=== PATIENT | male | born 1970 | race Caucasian/White ===

== ENCOUNTER 2016-07-26 20:10 | Emergency (ER) | payer MEDICARE, MEDICAID ==
[~2016-07-26] VITALS: Ht 167.6 cm; Wt 69.9 kg
[~2016-07-26 20:10] MED LIST: FURO40TA4 PO; IRON; LEVE500T PO; MIDAZOLAM 5 MG/5 ML (VERSED) VIAL IJ ONE; PNT40TEC PO; ROCURONIUM 50 MG/5 ML (ZEMURON) VIAL IV ONE; SPIR100T28 PO; SPIR100T37 GT; SUCCINYLCHOLINE INJ 100 MG/5 ML SYR INJ ONE; Sucralfate PO
[2016-07-26] MEDS ORDERED: LORazepam INJ 2 MG/ML (ATIVAN) VIAL ONE (20:14)
--- OUTSIDE RECORDS SUMMARY | 2016-07-26 20:15 | XMS REPORT ---
Author Author RALEIGH ESCAMILLA Organization [employer] Address Unknown Phone Unavailable Care Team Providers Care Configuration Technician Name Role Phone RALEIGH ESCAMILLA Unavailable Allergies No Known Allergies Problems Problem Type Condition Code Onset Dates Condition Status Problem Seizure disorder G40.909 Active Problem Cirrhosis K74.60 Active Medications Medication Code System Code Instructions Start Date End Date Status Dosage Keppra [facility] [address]-54 500 MG Orally every 12 hrs July 14, 2014 1 Tablet by Oral route 2 times per day Results No Known Results Summary Purpose [employer] Submission
[2016-07-26] MEDS ORDERED: ONDANSETRON 4 MG/2 ML (SDV) Z0FRAN ONE (20:18)
[2016-07-26] MEDS ORDERED: NS IV 1000 ML 1,000 ML IV STA (20:19)
[2016-07-26] MEDS ORDERED: ONDANSETRON 4 MG/2 ML (SDV) Z0FRAN IVP ONE (20:30)
[2016-07-26 20:32] LABS: BASOPHILS % (AUTO) 0 % (0-10); EOSINOPHILS % (AUTO) 0 % (0-10); LYMPHOCYTES # (AUTO) 0.5 X 10^3 (1.0-4.0); LYMPHOCYTES % (AUTO) 9 % (12-44); MEAN CORPUSCULAR HEMOGLOBIN 31 PG (25-34); MEAN CORPUSCULAR HGB CONC 34 G/DL (32-36); MEAN CORPUSCULAR VOLUME 89 FL (80-99); MEAN PLATELET VOLUME 9.3 FL (7.4-10.4); MONOCYTES # (AUTO) 0.7 X 10^3 (0.0-1.0); MONOCYTES % (AUTO) 12 % (0-12); NEUTROPHILS # (AUTO) 4.9 X 10^3 (1.8-7.8); NEUTROPHILS % (AUTO) 80 % (42-75); PLATELET COUNT 53 10^3/uL (130-400); RED BLOOD COUNT 4.06 10^6/uL (4.35-5.85); RED CELL DISTRIBUTION WIDTH 16.5 % (10.0-14.5); WHITE BLOOD COUNT 6.2 10^3/uL (4.3-11.0)
--- NOTE | 2016-07-26 20:37 | ED Head Injury ---
General Stated Complaint: SEIZURE Source: patient Exam Limitations: clinical condition History of Present Illness Time seen by provider: 20:15 Initial Comments Here with report from EMS of fall today and hitting his head. Patient has history of seizure disorder and hepatitis. Patient apparently fell straight back at the [employer]. His mother at that time did not want him transported although EMS did evaluate him. Later, they were called back to the home where patient apparently had had some seizures and is not acting right. He is responding to his name and has had several episodes of vomiting. C- collar was applied to the patient by EMS for transport and this remains in place. History per EMS. Otherwise unobtainable. Occurred: this afternoon Severity: moderate, severe Location: occipital Method of Injury: fell Loss of Consciousness: unsure Associated Systoms: Nausea/VomitingNo Shortness of Air Allergies and Home Medications Allergies Coded Allergies: No Known Drug Allergies (Unverified , 07/03/14) Home Medications 1 GM TAB #120 1 GM PO ACHS Prescribed by: GABBI PFEIFFER on 07/10/141356 Furosemide 40 Mg Tablet #30 20 MG PO DAILY Prescribed by: GABBI PFEIFFER on 07/10/147 Levetiracetam 500 Mg Tab #60 500 MG PO BID Prescribed by: GABBI PFEIFFER on 07/10/141356 Pantoprazole Sod 40 Mg Tab #60 40 MG PO BID Prescribed by: GABBI PFEIFFER on 07/10/141356 Spironolactone 100 Mg Tablet #30 50 MG PO DAILY Prescribed by: GABBI PFEIFFER on 07/10/147 Constitutional: see HPI Gastrointestinal: nausea vomiting Psychiatric/Neurological: See HPI Other Unable complete review of systems due to altered mental status Past Kfglqie-Gucbjs-Frrhnu Hx Patient Social History Alcohol Use: Denies Use Recreational Drug Use: No Smoking Status: Never a Smoker Immunizations Up To Date Date of Influenza Vaccine: Mar 17, 2014 Surgeries HX Surgeries: No Respiratory Hx Respiratory Disorders: No Cardiovascular Hx Cardiac Disorders: No Neurological Hx Neurological Disorders: Yes (HAS SEIZURE WHEN "A CERTAIN PERSON COMES TO HOUSE") Neurological Disorders: Seizure Disorder, Traumatic Brain Injury Reproductive System Hx Reproductive Disorders: No Genitourinary Hx Genitourinary Disorders: No Gastrointestinal Hx Gastrointestinal Disorders: Yes (LIVER ENZYMES UP/ POSSIBLE HEP B) Gastrointestinal Disorders: Cirrhosis Musculoskeletal Hx Musculoskeletal Disorders: No Endocrine Hx Endocrine Disorders: No HEENT HX ENT Disorders: No Cancer Hx Cancer: No Psychosocial Hx Psychiatric Problems: No Integumentary HX Skin/Integumentary Disorder: No Blood Transfusions Hx Blood Disorders: No Reviewed Nursing Assessment Reviewed/Agree w Nursing PMH: Yes Family Medical History Significant Family History: No Pertinent Family Hx Family Medial History: Patient reports no known family medical history. Physical Exam Vital Signs Vital Sign - Last 12Hours 07/26/16 07/26/16 20:48 22:00 O2 Flow Rate 100.00 FiO2 100 Capillary Refill : General Appearance: moderate distress (vomiting) thin HEENT: PERRL/EOMI TMs normal pharynx normal Neck: suppleNo tender lateral, other (abrasion to the posterior middle region of the head. Neck evaluated while holding C-spine with collar open. Reports nontender overall.) Cardiovascular: no murmur tachycardia Respiratory: lungs clear normal breath sounds Gastrointestinal: non tender soft Back: normal inspection no CVA tenderness no vertebral tenderness Extremities: non-tender normal inspection Psychiatric: disoriented x 3 lethargic Crainal Nerves: PERRL other (does open eyes and occasionally answers questions.) Skin: normal color warm/dry Jose Raul Coma Score Best Eye Response: (3) Open to Voice Best Verbal Response: (3) Inappropriate Words Best Motor Response: (6) Obeys Commands Progress/Results/Core Measures Results/Orders Lab Results Laboratory Tests Test 07/26/16 20:25 07/26/16 20:37 07/26/16 21:30 Range/Units Acetaminophen Level < 10 L 10-30 UG/ML Activated Partial Thromboplast Time 31 24-35 SEC Alanine Aminotransferase (ALT/SGPT) 59 H 0-55 U/L Albumin 3.3 3.2-4.5 G/DL Alkaline Phosphatase 163 H 40-136 U/L Ammonia 44 H 11-32 UMOL/L Anion Gap 14 5-14 MMOL/L Aspartate Amino Transf (AST/SGOT) 70 H 5-34 U/L BUN/Creatinine Ratio 14 Basophils # (Auto) 0.0 0.0-0.1 10^3/uL Basophils (%) (Auto) 0 0-10 % Blood Urea Nitrogen 17 7-18 MG/DL Calcium Level 8.9 8.5-10.1 MG/DL Carbon Dioxide Level 17 L 21-32 MMOL/L Chloride Level 105 98-107 MMOL/L Creatinine 1.19 0.60-1.30 MG/DL Eosinophils # (Auto) 0.0 0.0-0.3 10^3/uL Eosinophils (%) (Auto) 0 0-10 % Estimat Glomerular Filtration Rate > 60 Glucose Level 125 H 70-105 MG/DL Hematocrit 36 L 40-54 % Hemoglobin 12.4 L 13.3-17.7 G/DL INR Comment 1.6 H 0.8-1.4 Lymphocytes # (Auto) 0.5 L 1.0-4.0 X 10^3 Lymphocytes (%) (Auto) 9 L 12-44 % Magnesium Level 1.7 L 1.8-2.4 MG/DL Mean Corpuscular Hemoglobin 31 25-34 PG Mean Corpuscular Hemoglobin Concent 34 32-36 G/DL Mean Corpuscular Volume 89 80-99 FL Mean Platelet Volume 9.3 7.4-10.4 FL Monocytes # (Auto) 0.7 0.0-1.0 X 10^3 Monocytes (%) (Auto) 12 0-12 % Neutrophils # (Auto) 4.9 1.8-7.8 X 10^3 Neutrophils (%) (Auto) 80 H 42-75 % Platelet Count 53 L 130-400 10^3/uL Potassium Level 3.7 3.6-5.0 MMOL/L Prothrombin Time 19.1 H 12.2-14.7 SEC Red Blood Count 4.06 L 4.35-5.85 10^6/uL Red Cell Distribution Width 16.5 H 10.0-14.5 % Serum Alcohol < 10 <10 MG/DL Sodium Level 136 135-145 MMOL/L Total Bilirubin 1.5 H 0.1-1.0 MG/DL Total Protein 6.8 6.4-8.2 G/DL White Blood Count 6.2 4.3-11.0 10^3/uL Ur Tricyclic Antidepressants Screen NEGATIVE NEGATIVE Urine Amphetamines Screen NEGATIVE NEGATIVE Urine Bacteria NEGATIVE /HPF Urine Barbiturates Screen NEGATIVE NEGATIVE Urine Benzodiazepines Screen NEGATIVE NEGATIVE Urine Bilirubin NEGATIVE NEGATIVE Urine Cannabinoids Screen NEGATIVE NEGATIVE Urine Casts PRESENT /LPF Urine Clarity SLIGHTLY CLOUDY Urine Cocaine Screen NEGATIVE NEGATIVE Urine Color YELLOW Urine Crystals NONE /LPF Urine Culture Indicated NO Urine Glucose (UA) NEGATIVE NEGATIVE Urine Hyaline Casts 5-10 H /LPF Urine Ketones NEGATIVE NEGATIVE Urine Leukocyte Esterase NEGATIVE NEGATIVE Urine Methadone Screen NEGATIVE NEGATIVE Urine Methamphetamines Screen NEGATIVE NEGATIVE Urine Mucus MODERATE H /LPF Urine Nitrite NEGATIVE NEGATIVE Urine Opiates Screen NEGATIVE NEGATIVE Urine Oxycodone Screen NEGATIVE NEGATIVE Urine Phencyclidine Screen NEGATIVE NEGATIVE Urine Propoxyphene Screen NEGATIVE NEGATIVE Urine Protein NEGATIVE NEGATIVE Urine RBC NONE /HPF Urine RBC (Auto) NEGATIVE NEGATIVE Urine Specific [place] 1.025 H 1.016-1.022 Urine Urobilinogen 1 NORMAL MG/DL Urine WBC 0-2 /HPF Urine pH 5 5-9 Yifan Test YES-POS Arterial Blood Base Excess -5.2 L -2.5-2.5 MMOL/L Arterial Blood HCO3 20 L 23-27 MMOL/L Arterial Blood Oxygen Saturation 101 H 94-100 % Arterial Blood Partial Pressure CO2 36 35-45 MMHG Arterial Blood Partial Pressure O2 336 H 79-93 MMHG Arterial Blood Total CO2 20.7 L 21.0-31.0 MMOL/L Arterial Blood pH 7.35 L 7.37-7.43 Blood Gas Inspired Oxygen 100% Blood Gas Patient Temperature 97.5 Blood Gas Puncture Site RT RAD Blood Gas Ventilator Setting YES My Orders Orders-SUE BRANDON MD Lorazepam Injection (Ativan Injection) (07/26/16 20:14) Ct Head/Cervical Spine Wo (07/26/16 20:19) Acetaminophen (07/26/16 20:19) Alcohol (07/26/16 20:19) Ammonia (07/26/16 20:19) Cbc With Automated Diff (07/26/16 20:19) Comprehensive Metabolic Panel (07/26/16 20:19) Drug Screen Stat (Urine) (07/26/16 20:19) Magnesium (07/26/16 20:19) Protime With Inr (07/26/16 20:19) Partial Thromboplastin Time (07/26/16 20:19) Ua Culture If Indicated (07/26/16 20:19) Ondansetron Injection (Zofran Injectio (07/26/16 20:30) Ns Iv 1000 Ml (Sodium Chloride 0.9%) (07/26/16 20:19) Ondansetron Injection (Zofran Injectio (07/26/16 20:18) Chest 1 View, Ap/Pa Only (07/26/16 20:31) Propofol Drip (Icu) (Diprivan Drip (Icu) (07/26/16 20:45) Catheter(Urinary) Insert & Ass 03,15 (07/26/16 20:49) Ng Tube Insert & Assessment (07/26/16 20:49) Arterial Blood Gas (07/26/16 21:28) Abo Rh Type (07/26/16 21:29) Platelet Pheresis Lr (07/26/16 21:29) Lara Cath Insertion (07/27/16 02:12) Saline Lock/Iv-Start (07/27/16 02:22) Midazolam Injection (Versed Injection) (07/26/16 12:00) Rocuronium Injection (Zemuron Injection) (07/26/16 12:00) Succinylcholine Injection (Succinylcholi (07/26/16 12:00) Vital Signs/I&O Progress Note : Progress Note Seen and evaluated on arrival by EMS. Patient poorly responding but does respond to some commands. He did open eyes to voice. Patient having difficulty with controlling airway and began to have projectile vomiting. There is concerns for significant head injury due to fall. Intubated for airway protection emergently using Versed and succinylcholine. Post intubation sedation with propofol. Intubated by Vaibhav Leon APRN under my direct supervision. I was present for the entirety of the procedure. Labs, chest x- ray, CT head and neck ordered. NG tube and Lara catheter ordered. Monitor patient. 2100: Patient moving and propofol has been increased. Rocuronium 40 mg IV initiated. Propofol increased to 60 mcg/kg/m. 2123: Large left subdural hematoma noted on CT scan with midline shift. I did page [facility] for transfer. Message left with transfer line. I did discuss findings with the grandmother who is the patient's adoptive mother. Patient does have a history of mental retardation and cirrhosis of the liver. He also has history of seizure disorder. On evaluating the labs, patient was noted to have low platelets which is typical for him and INR of 1.6. We would be able to initiate platelet pheresis and this was ordered. We will consider FFP depending on time of transfer. Pending call back. We will send by helicopter and they were placed on standby. 2154: I did complete conversation with Dr. Jasmine, ER doctor at [place] [facility] as well as Dr. Rocha at [place] [facility] on-call for neurosurgery. They agree with platelet pheresis. We will not initiate FFP due to time. Helicopter crew is here now and they have accepted patient for transfer from ER to ER. Family informed of transfer as well as the critical nature of the patient. He will go by air care helicopter service. Critical condition but stable. Diagnostic Imaging Diagonstic Imaging: Xray Plain Films/CT/US/NM/MRI: chest Comments VIA [facility]. [place], [place] NAME: SHARMILA BENSON [facility] REC#: [id number] PT STATUS: REG ER : 1970 PHYSICIAN: SUE BRANDON MD ADMIT DATE: 07/26/16/ER Draft Date of Exam:07/26/16 CHEST 1 VIEW, AP/PA ONLY Indication: Unresponsive, seizures and vomiting. Discussion: Single portable supine view of the chest was obtained, comparison 07/07/2014. Endotracheal tube tip in good position within the midtrachea. Enteric tube in good position within the gastric body. Normal heart size. No focal consolidation, pleural fluid, or pneumothorax. No acute osseous abnormality. Impression: 1. Endotracheal tube and enteric tube are in good position. No acute cardiopulmonary process. Dictated on workstation # [id number] Dict: 07/26/162051 Trans: 07/26/162055 [facility] [phone] Interpreted by: RALEIGH LUCERO MD Electronically signed by: Reviewed: Reviewed by Me Diagonstic Imaging: CT Plain Films/CT/US/NM/MRI: c-spine, head Comments NAME: SHARMILA BENSON [facility] REC#: [id number] PT STATUS: REG ER : 1970 PHYSICIAN: SUE BRANDON MD ADMIT DATE: 07/26/16/ER Draft Date of Exam:07/26/16 CT HEAD/CERVICAL SPINE WO PROCEDURE: CT head and CT cervical spine without contrast. TECHNIQUE: Multiple contiguous axial images were obtained through the brain and cervical spine without the use of intravenous contrast. Sagittal and coronal reformations through the cervical spine were then performed. Indication: Patient is unresponsive after falling and striking head on concrete. Comparison: None. Discussion: Head: Large acute subdural hematoma overlying the left cerebral hemisphere, measuring up to 1.5 cm in thickness. This contributes to complete effacement of the left lateral ventricle and 1.2 cm of rightward midline shift. Endotracheal tube is present. Visualized orbits, paranasal sinuses, mastoid air cells, and calvarium are unremarkable. No intraventricular extension of hemorrhage identified. Cervical spine: Moderate degenerative changes are noted within the cervical spine. Chronic irregularity of the endplates is noted. No acute fracture or subluxation. Mild leftward curvature of the cervical spine, likely positional. The paraspinal soft tissues are unremarkable. Impression: 1. Large acute left subdural hematoma overlying the entire left cerebral hemisphere. This contributes to 1.2 cm of rightward midline shift and near complete effacement of the left lateral ventricle. 2. Negative cervical spine CT. Critical finding. Results were called to Dr. Brandon in the ER at time of exam by Dr. Lucero. Dictated on workstation # [id number] Dict: 07/26/162124 Trans: 07/26/162134 [facility] [id number] Interpreted by: RALEIGH LUCERO MD Electronically signed by: Reviewed: Reviewed by Me, Discussed w/Radiologist Departure Impression Impression: Primary Impression: Hematoma, subdural, with loss of consciousness, traumatic Disposition: XFER T-[facility] Condition: Stable Transfer Transfer Time: 21:24 Transfer Facility: [place], [place], Dr. Jasmine and Dr. Rocha excepting. Method of Transfer: Air Departure-Patient Inst. Referrals: RALEIGH ESCAMILLA MD (PCP/Family) Primary Care Physician SUE BRANDON MD Jul 26, 2016 20:37 Condition: Stable Transfer Transfer Time: 21:24 Transfer Facility: [place], [place], Dr. Jasmine and Dr. Rocha excepting. Method of Transfer: Air Departure-Patient Inst. Referrals: RALEIGH ESCAMILLA MD (PCP/Family) Primary Care Physician SUE BRANDON MD Jul 26, 2016 20:37
[2016-07-26 20:41] LABS: INR 1.6 (0.8-1.4); PROTHROMBIN TIME PATIENT 19.1 SEC (12.2-14.7)
[2016-07-26 20:42] LABS: BILIRUBIN,URINE NEGATIVE (NEGATIVE); KETONES,URINE NEGATIVE (NEGATIVE); LEUKOCYTE ESTERASE ,URINE NEGATIVE (NEGATIVE); NITRITE,URINE NEGATIVE (NEGATIVE); PH,URINE 5 (5-9); PROTEIN,URINE NEGATIVE (NEGATIVE); UROBILINOGEN,URINE 1 MG/DL (NORMAL)
[2016-07-26] MEDS ORDERED: PROPOFOL DRIP (ICU) 100 ML IV SCH (20:45)
[2016-07-26 20:48] VITALS: BP 150/100
[2016-07-26 20:55] LABS: WBC,URINE 0-2 /HPF
--- NOTE | 2016-07-26 20:56 | Diagnostic Imaging Report ---
Indication: Unresponsive, seizures and vomiting. Discussion: Single portable supine view of the chest was obtained, comparison 07/07/2014. Endotracheal tube tip in good position within the midtrachea. Enteric tube in good position within the gastric body. Normal heart size. No focal consolidation, pleural fluid, or pneumothorax. No acute osseous abnormality. Impression: 1. Endotracheal tube and enteric tube are in good position. No acute cardiopulmonary process. Dictated by: Dictated on workstation # [id number]
[2016-07-26 21:04] LABS: ALANINE AMINOTRANSFERASE 59 U/L (0-55); ALBUMIN 3.3 G/DL (3.2-4.5); AMMONIA 44 UMOL/L (11-32); ANION GAP 14 MMOL/L (5-14); ASPARTATE AMINO TRANSFERASE 70 U/L (5-34); BILIRUBIN,TOTAL 1.5 MG/DL (0.1-1.0); BLOOD UREA NITROGEN 17 MG/DL (7-18); BUN/CREATININE RATIO 14; CALCIUM 8.9 MG/DL (8.5-10.1); CARBON DIOXIDE 17 MMOL/L (21-32); CHLORIDE 105 MMOL/L (98-107); CREATININE SERUM 1.19 MG/DL (0.60-1.30); GFR ESTIMATED > 60; GLUCOSE 125 MG/DL (70-105); MAGNESIUM 1.7 MG/DL (1.8-2.4); POTASSIUM 3.7 MMOL/L (3.6-5.0); SODIUM 136 MMOL/L (135-145); TOTAL PROTEIN 6.8 G/DL (6.4-8.2)
[2016-07-26 21:05] LABS: ACETAMINOPHEN < 10 UG/ML (10-30); ALCOHOL < 10 MG/DL (<10)
[2016-07-26 21:36] LABS: ABG BASE EXCESS -5.2 MMOL/L (-2.5-2.5); ABG HCO3 20 MMOL/L (23-27); ABG OXYGEN SATURATION 101 % (94-100); ABG PCO2 36 MMHG (35-45); ABG PH 7.35 (7.37-7.43); ABG PO2 336 MMHG (79-93); ABG TCO2 20.7 MMOL/L (21.0-31.0); ALLENS TEST YES-POS; PATIENT TEMP 97.5
--- NOTE | 2016-07-26 21:36 | Diagnostic Imaging Report ---
PROCEDURE: CT head and CT cervical spine without contrast. TECHNIQUE: Multiple contiguous axial images were obtained through the brain and cervical spine without the use of intravenous contrast. Sagittal and coronal reformations through the cervical spine were then performed. Indication: Patient is unresponsive after falling and striking head on concrete. Comparison: None. Discussion: Head: Large acute subdural hematoma overlying the left cerebral hemisphere, measuring up to 1.5 cm in thickness. This contributes to complete effacement of the left lateral ventricle and 1.2 cm of rightward midline shift. Endotracheal tube is present. Visualized orbits, paranasal sinuses, mastoid air cells, and calvarium are unremarkable. No intraventricular extension of hemorrhage identified. Cervical spine: Moderate degenerative changes are noted within the cervical spine. Chronic irregularity of the endplates is noted. No acute fracture or subluxation. Mild leftward curvature of the cervical spine, likely positional. The paraspinal soft tissues are unremarkable. Impression: 1. Large acute left subdural hematoma overlying the entire left cerebral hemisphere. This contributes to 1.2 cm of rightward midline shift and near complete effacement of the left lateral ventricle. 2. Negative cervical spine CT. Critical finding. Results were called to Dr. Conner in the ER at time of exam by Dr. Lucero. Dictated by: Dictated on workstation # [id number]
[2016-07-26 21:55] VITALS: BP 105/71
[2016-07-26 22:00] VITALS: BP 107/72
[2016-07-26 22:15] VITALS: BP 119/71
== END 2016-07-26 22:24 | disposition short-term general hospital (02) ==
LOC: EDUNIT# 20:10 → ER 20:11
DX: S06.5X9A Traumatic subdural hemorrhage with loss of consciousness of unspecified duration, initial encounter (principal); F79 Unspecified intellectual disabilities; K74.60 Unspecified cirrhosis of liver; W01.0XXA Fall on same level from slipping, tripping and stumbling without subsequent striking against object, initial encounter; Y92.512 Supermarket, store or market as the place of occurrence of the external cause; Y99.8 Other external cause status
CPT/HCPCS: 36415; 36430; 51702; 70450; 71010; 72125; 80053; 80306; 80320; 80329; 81000; 82140; 82805; 83735; 85025; 85610; 85730; 86900; 86901; 94799; 96361; 96374